=== PATIENT | male | born 1950 | race Caucasian/White ===

== ENCOUNTER → 2020-10-22 | Outpatient (CLI) | payer OTHER ==
[~2020-10-22] MED LIST: ALFUZOSIN HCL E10 MG PO; ATENOLOL50 MG PO; BACLOFEN10 MG PO; CELEXA40 MG PO; CLARITIN10 M2 PO; COZAAR50 MG PO; CRESTOR10 MG PO; GLUCOTROL 10 MG10 MG PO; LANTUS100 UNIT/1 SQ; METFORMIN HCL500 MG PO; NEURONTIN400 MG PO; OMEPRAZOLE20 M1 PO; SINGULAIR10 MG PO; VITAMIN D325 MCG PO
[2020-10-22 12:53] LABS: HEMOGLOBIN 16.6 gm/dl (14.0-17.5); RED BLOOD COUNT 5.52 M/UL (4.20-5.50); WHITE BLOOD COUNT 6.9 K/UL (4.5-11.0)
[2020-10-22 13:01] LABS: BUN/CREATININE RATIO 21 (0-10)
== END ==
LOC: OPSV2 11:00 → EDSTATUS 11:00 → OPSV2 11:46
PROVIDERS: Orthopaedic Surgery
DX: Z01.818 Encounter for other preprocedural examination (principal); M17.12 Unilateral primary osteoarthritis, left knee
CPT/HCPCS: 36415; 71046; 80048; 81001; 83036; 85025; 87081; 93005

== ENCOUNTER → 2021-01-23 | Outpatient (CLI) | payer OTHER ==
[~2021-01-23] MED LIST changes: +ELIQUIS 2.5 MG2.5 MG PO
[2021-01-23 12:49] LABS: RED BLOOD COUNT 4.81 M/UL (4.20-5.50); WHITE BLOOD COUNT 5.1 K/UL (4.5-11.0)
[2021-01-23 13:20] LABS: BUN/CREATININE RATIO 16 (0-10)
== END ==
LOC: OPSV2 11:00 → EDSTATUS 11:00 → OPSV2 11:46
PROVIDERS: Orthopaedic Surgery
DX: Z01.818 Encounter for other preprocedural examination (principal); M17.12 Unilateral primary osteoarthritis, left knee; R94.31 Abnormal electrocardiogram [ECG] [EKG]; R00.1 Bradycardia, unspecified; I51.7 Cardiomegaly
CPT/HCPCS: 36415; 80048; 81001; 83036; 85027; 93005

== ENCOUNTER 2021-02-04 09:17 | Day surgery (SDC) | payer OTHER ==
[~2021-02-04] VITALS: Ht 182.9 cm; Wt 134.3 kg
[~2021-02-04 09:17] MED LIST changes: -ELIQUIS 2.5 MG2.5 MG PO
[2021-02-04 10:17] LABS: BUN/CREATININE RATIO 21 (0-10)
--- NOTE | 2021-02-05 02:55 | NUR ---
Came into room to d/c rina, PT states he wants to keep flynn in, I notified PT of infection risk and MD wishing to get flynn out as soon as possible, PT stated @0500 he would let me take it out. Stated he wanted to keep flynn in tonight because of pain and getting up to pee, stated he couldn't pee laying down in the bed and didn't want to get up and down the rest of the night
[2021-02-05 06:55] LABS: HEMOGLOBIN 13.6 gm/dl (14.0-17.5); RED BLOOD COUNT 4.37 M/UL (4.20-5.50); WHITE BLOOD COUNT 11.9 K/UL (4.5-11.0)
[2021-02-05 07:20] LABS: BUN/CREATININE RATIO 29 (0-10)
[2021-02-05] MEDS ORDERED: ELIQUIS 2.5 MG2.5 MG PO (09:42)
--- NOTE | 2021-02-05 10:09 | NUR ---
patient performs/using Incentive Spirometer q1 hour while awake
== END 2021-02-05 15:40 | disposition home or self-care (01) ==
LOC: OR 09:17 → EDSTATUS 12:45 → ZOBSOF 17:54 → M/S 17:54 → OR 02-05 15:40 → M/S 02-05 15:40
PROVIDERS: Orthopaedic Surgery
PROC: 0SRD0J9 Replacement of Left Knee Joint with Synthetic Substitute, Cemented, Open Approach (ICD-10-PCS; principal; 2021-02-04 12:45)
DX: M17.12 Unilateral primary osteoarthritis, left knee (principal); I10 Essential (primary) hypertension; E11.9 Type 2 diabetes mellitus without complications; Z20.822 Contact with and (suspected) exposure to COVID-19; K21.9 Gastro-esophageal reflux disease without esophagitis; E66.9 Obesity, unspecified; Z79.84 Long term (current) use of oral hypoglycemic drugs; Z88.8 Allergy status to other drugs, medicaments and biological substances; Z68.39 Body mass index [BMI] 39.0-39.9, adult
CPT/HCPCS: 36415; 73560; 80048; 82962; 85025; 86850; 86900; 86901; 97110; 97110-GP-CQ; 97116-GP-CQ; 97162; 97165; 97535; C1776; J0171; J0690; J1100; J1170; J2704; J2795; J3370; J7030; J7120; U0002